=== PATIENT | female | born 1950 | race Caucasian/White ===

== ENCOUNTER 2023-03-17 11:38 | Day surgery (SDC) | payer MEDICARE, OTHER, SELFPAY ==
--- NOTE | 2023-03-17 | PATH_ITS ---
[facility] Accession Number: [id number] No. of containers..01 Tissue . 01 Material submitted: . colon - COLON BIOPSY . 01 Clinical history: . RULE OUT LYMPHOCYTIC COLITIS . 01 Diagnosis: Colon, Biopsy: Colonic mucosa with melanosis coli. No other significant diagnostic alterations are identified. No evidence of microscopic colitis. No dysplasia or neoplasia identified. MRV 03/25/2023 1432 Local . 01 Electronically signed: . Agustina Warner MD, Pathologist NPI- [id number] . 01 Gross description: . COLON BIOPSY: Received in formalin are multiple fragment(s) of butler, soft tissue measuring 0.1 x 0.1 x 0.1 cm to 0.3 x 0.2 x 0.2 cm submitted entirely in 1 cassette(s) /FERCHO 03/24/2023 0011 Local . 01 Pathologist provided ICD-10: K31.89 . 01 CPT . 921600 Specimen Comment: A courtesy copy of this report has been sent to [phone] Performed at: 01 [facility] [address] [place] [address], [place], [place] [id number] MD Andrade Don MD Phone: [phone]
[2023-03-17 12:11] VITALS: BP 121/72; PULSE 82; RESP 16; TEMP 36.8; O2SAT 93; BMI 25.7
[2023-03-17] MEDS: LACTATED RINGERS 1,000 ML 42 ML IV (12:21)
--- NOTE | 2023-03-17 12:44 | PM.HP.1 ---
History of Present Illness History of Present Illness Date Patient Seen: 03/17/23 Chief complaint: SDC Narrative: diarrhea, fecal urgency and incontinence, with history of lymphocytic colitis incompletely responsive to budesonide. [facility] Medical History (Updated 03/17/23 @ 09:38 by Elisa Maria RN) Asthma Dyslipidemia Hypothyroid Lymphocytic colitis Surgical History (Updated 03/17/23 @ 09:38 by Elisa Maria RN) History of tonsillectomy Hx of foot surgery Hx of neck surgery Previous back surgery Social History household members: spouse Smoking Status: Never smoker Meds Home Medications and Allergies Home Medications Medication Instructions Recorded Confirmed Type atorvastatin 40 mg tablet 40 mg PO DAILY 03/17/23 03/17/23 History beclomethasone dipropionate 80 1 inh inhalation PRN PRN asthma 03/17/23 03/17/23 History mcg/actuation HFA breath activated aerosol (Qvar RediHaler) bupropion HCl 100 mg tablet,12 hr 100 mg PO DAILY 03/17/23 03/17/23 History sustained-release cholecalciferol (vitamin D3) 125 125 mcg PO DAILY 03/17/23 03/17/23 History mcg (5,000 unit) tablet (Vitamin D3) cyanocobalamin (vitamin B-12) 2,500 mcg PO DAILY 03/17/23 03/17/23 History 2,500 mcg sublingual tablet (Vitamin B-12) fexofenadine 180 mg tablet 180 mg PO DAILY 03/17/23 03/17/23 History levothyroxine 112 mcg tablet 112 mcg PO DAILY 03/17/23 03/17/23 History (Synthroid) sertraline 50 mg tablet 25 mg PO DAILY 03/17/23 03/17/23 History Allergies Allergy/AdvReac Type Severity Reaction Status Date / Time No Known Drug Allergies Allergy Verified 03/17/23 09:39 Exam Vital Signs (past 8 hours): - 03/17/23 12:11 Temperature 98.3 F Pulse Rate 82 Respiratory Rate 16 Blood Pressure 121/72 Pulse Oximetry 93 Oxygen Delivery Method Room Air Oxygen Delivery Method Room Air Narrative Exam Narrative: Oropharynx free of lesions Chest clear to auscultation percussion Cardiac exam reveals no S3 or murmur Assessment & Plan Assessment & Plan narrative: Continued diarrhea and a fecal incontinence poorly responsive to budesonide for a history of lymphocytic colitis need for follow-up. Plan is to perform colonoscopy with intubation of the terminal ileum and take multiple biopsies. Risks, benefits, alternatives have been explained.
--- NOTE | 2023-03-17 12:46 | PM.OP.COLON ---
Operative Date/Time/Diagnoses Date of procedure: 03/17/23 Pre-op diagnosis: See indication and findings Procedure & Clinicians Study performed: Colonoscopy Indications: Diarrhea and fecal incontinence with history of lymphocytic colitis Surgeon: Taylor Bernal Procedure Notes Procedure in detail: After informed consent was obtained the patient was placed in left lateral decubitus position. The video colonoscope was introduced the rectum slowly advanced cecum. Preparation was good. On slow withdrawal mucosa was carefully examined. The scope was removed. The patient tolerated procedure well. Blood loss none Complications none Sedation mac Findings 1. Mild colitis throughout the colon with some decreased her abnormal vascular pattern and occasional patchy erythema. Biopsies taken randomly to rule out lymphocytic colitis 2. Terminal ileum unable to be intubated primarily due to a respiratory efforts causing excessive movement of the cecum. Karen go back on her budesonide and follow up with Dr. Pugh for further recommendations.
[2023-03-17 14:00] VITALS: BP 88/67; PULSE 74; RESP 12; TEMP 36.3; O2SAT 94
[2023-03-17 14:04] VITALS: BP 94/68; PULSE 70; RESP 12; O2SAT 95
[2023-03-17 14:07] VITALS: BP 106/54; PULSE 74; RESP 18; O2SAT 92
[2023-03-17 14:28] VITALS: BP 119/57; PULSE 66; RESP 11; TEMP 36.4; O2SAT 100
== END 2023-03-17 14:47 | disposition home or self-care (01) ==
PROVIDERS: PCP Family Medicine; Referring Provider Internal Medicine Gastroenterology; Visit Provider Internal Medicine Gastroenterology
PROC: 0DJD8ZZ Inspection of Lower Intestinal Tract, Via Natural or Artificial Opening Endoscopic (ICD-10-PCS; CPT 45378; principal; 2023-03-17 13:00)
DX: R19.7 Diarrhea, unspecified (principal); R15.9 Full incontinence of feces; K63.89 Other specified diseases of intestine
CPT/HCPCS: 45380; J2704